=== PATIENT | male | born 1970 | race Caucasian/White ===

== ENCOUNTER 2021-07-24 10:52 | Day surgery (SDC) | payer OTHER ==
[~2021-07-24] VITALS: Ht 171.4 cm; Wt 78.5 kg
[2021-07-24] MEDS ORDERED: fentaNYL citrate 0.05 MG/ML VIAL ONE (13:13)
[2021-07-24] MEDS ORDERED: MIDAZOLAM 5 MG/5 ML VIAL ONE (13:13)
== END 2021-07-24 14:45 | disposition home or self-care (01) ==
LOC: MDS 10:52 → MMU 10:53 → MDS 14:45
PROVIDERS: ATTEND Internal Medicine Gastroenterology
DX: K62.5 Hemorrhage of anus and rectum (principal); K64.9 Unspecified hemorrhoids; K21.9 Gastro-esophageal reflux disease without esophagitis; K22.89 Other specified disease of esophagus; E78.5 Hyperlipidemia, unspecified; E78.00 Pure hypercholesterolemia, unspecified; Z79.899 Other long term (current) drug therapy
CPT/HCPCS: 43235; 45378; J2250; J3010